=== PATIENT | female | born 1995 | race Caucasian/White ===

== ENCOUNTER 2023-10-02 16:19 | Inpatient (IN) | payer MEDICAID, SELFPAY ==
[2023-10-02] VITALS (10 sets, daily range): BP systolic 110–142; BP diastolic 58–91; PULSE 94–122; RESP 16–20; TEMP 37.3–39.6; O2SAT 93–96; BMI 35.9
--- NOTE | 2023-10-02 16:40 | ED_ITS ---
HPI - Fever General Time Seen by Provider: 16:40 Date Seen: 10/02/23 Chief Complaint: Fever Stated Complaint: fever, body aches Time Seen by Provider: 10/02/23 16:20 Source: patient and RN notes reviewed Mode of arrival: ambulatory Limitations: no limitations History of Present Illness HPI Narrative: This 28yo female is coming in with headache, fever, and body aches that started today. Denies sore throat, cough, urinary symptoms, abdominal pain, nausea/vomiting or diarrhea. She has no known ill contacts, no travel. Symptoms started this am. She has not taken any OTC meds, no tylenol or ibuprofen. Patient's son is in the room with her, not ill. MD elicited complaint: fever Related Data Home Medications ?Medication ?Instructions ?Recorded ?Confirmed No Known Home Medications 10/02/23 10/02/23 Allergies Allergy/AdvReac Type Severity Reaction Status Date / Time No Known Drug Allergies Allergy Verified 10/02/23 16:36 Review of Systems Status of ROS Reports: 6 or more systems reviewed and unremarkable except as noted in History and below PFSH PFS Social History Smoking Status: Unknown if ever smoked Exam Const Vital Signs, click to edit/add: Vital Signs - 24 hr 10/02/23 16:34 10/02/23 17:25 10/02/23 17:50 Temperature 101.2 F H 100.5 F H Pulse Rate Pulse Rate [Pulse Oximeter] 122 H 108 H Respiratory Rate 20 Blood Pressure Blood Pressure [Right Upper Arm] 137/88 Pulse Oximetry 95 94 Oxygen Delivery Method Room Air Room Air 10/02/23 18:02 10/02/23 18:31 10/02/23 20:05 Temperature Pulse Rate 105 H 104 H Pulse Rate [Pulse Oximeter] 94 Respiratory Rate Blood Pressure 135/89 127/91 H Blood Pressure [Right Upper Arm] Pulse Oximetry 93 95 96 Oxygen Delivery Method Room Air 10/02/23 20:15 Temperature Pulse Rate Pulse Rate [Pulse Oximeter] Respiratory Rate 16 Blood Pressure Blood Pressure [Right Upper Arm] Pulse Oximetry Oxygen Delivery Method Patient is lying in bed in room 1. She mostly kept her eyes closed, did open when prompted and pupils equal and round, conjugate gaze, sclera clear. Symmetrical facial function. Oropharynx with normal mucosa, dentition good repair, mucosa is well hydrated, posterior pharynx normal. See no exudates or erythema. Neck is supple, no adenopathy. Lungs are clear, good air entry, wheezing crackles, no tachypnea. CV fast irregular, no murmur, normal S1-S2, no S3-S4. Abdomen is soft, nontender, nondistended, no organomegaly, no masses. Documenting provider has reviewed patient's vital signs: yes Course Course ED Course: Nursing staff have collected viral triple swab which is certainly appropriate. Will also do strep testing. Will give Tylenol 1000mg to help with fever and symptom control. Reevaluation(s) Time of Reevaluation #1: 17:34 Reevaluation #1: Reviewed with patient that her covid, influenza, RSV and strep swabs were neg ative. She will have IV placed, receive IV fluids, obtain labs with UA, get portable chest x-ray for occult pneumonia. She is in agreement. Her son notes that they were outside yesterday and did see ticks, otherwise no known prior exposure. Time of Reevaluation #2: 18:41 Reevaluation #2: Reviewed with patient my concern that source could be urinary. She is not menstruating right now. Reviewed that we can treat with antibiotics. Patient would like imaging done, did discuss with her CT imaging to confirm diagnosis or rather rule out other entities. She would prefer to do this and would like to proceed with CT imaging. Did discuss with her radiation, did review with her that I a believed that we certainly could go ahead and treat with antibiotics and observe clinically. She would like to proceed with CT imaging and thus this was ordered. Time of Reevaluation #3: 20:12 Reevaluation #3: Reviewed patient's CT report. Did review that there is moderate thickening of the ascending and proximal transverse colon which radiologist felt likely is representing mild colitis changes. She is just achy everywhere, feels cold. Headache is somewhat improved. Did review with her that there is some changes in her urine that could be indicative urinary tract infection although this is not showing up on CT imaging. She has not eaten anything today, has been drinking some but maybe not keeping up with intake of fluids. She looks ill, reviewed with her that I would like to consider talking to the hospitalist about observation overnight just to ensure that we have correct diagnosis. She would be agreeable to that. I will subsequently talk to the hospitalist. Consultations Consultation #1: Did review with the hospitalist briefly, Dr. Parmar. He will be down shortly to discuss further. Did discuss with hospitalist. He will decide on antibiotics or not. He agrees with observation and supportive care with fluids overnight. Did initiate maintenance IV fluids for her. Time: 20:14 Vital Signs Vital signs: Initial Vital Signs Temperature 101.2 F H 10/02/23 16:34 Temperature Source Temporal Artery Scan 10/02/23 16:34 Pulse Rate 122 H 10/02/23 16:34 Respiratory Rate 20 10/02/23 16:34 Blood Pressure 137/88 10/02/23 16:34 Blood Pressure Mean 104 10/02/23 16:34 Pulse Oximetry 95 10/02/23 16:34 Oxygen Delivery Method Room Air 10/02/23 16:34 Vital Signs Temperature 101.2 F H 10/02/23 16:34 Pulse Rate 122 H 10/02/23 16:34 Respiratory Rate 20 10/02/23 16:34 Blood Pressure 137/88 10/02/23 16:34 Pulse Oximetry 95 10/02/23 16:34 Oxygen Delivery Method Room Air 10/02/23 16:34 Temperature 100.5 F H 10/02/23 17:50 Pulse Rate 94 10/02/23 20:05 Respiratory Rate 16 10/02/23 20:15 Blood Pressure 127/91 H 10/02/23 18:31 Pulse Oximetry 96 10/02/23 20:05 Oxygen Delivery Method Room Air 10/02/23 20:05 Medications Administered Medications: Discontinued Medications Generic Name Dose Route Start Last Admin Trade Name Freq PRN Reason Stop Dose Admin Acetaminophen 1,000 mg 10/02/23 16:54 10/02/23 17:02 Acetaminophen 500 Mg Tablet PO 10/02/23 16:55 1,000 mg ONCE ONE Administration Sodium Chloride 1,000 mls @ 1,000 mls/hr 10/02/23 17:33 10/02/23 20:06 0.9 % Sodium Chloride 1000 Ml IV 10/02/23 18:32 Infused .Q1H ALLY Infusion MDM - Fever Lab Data Attestation: I reviewed the patient's lab results. Labs: Lab Results 10/02/23 10/02/23 10/02/23 Range/Units 16:30 17:00 17:40 WBC (4.50-11.00) K/uL RBC (4.00-5.20) m/uL Hgb (12.0-16.0) gm/dL Hct (33.0-51.0) % MCV (80-100) fL MCH (26-34) pg MCHC (32-36) gm/dL RDW Coeff of Lalita (11.5-15.5) % Plt Count (140-440) K/uL Neut % (Auto) (42.0-72.0) % Lymph % (Auto) (20-44) % [place] % (Auto) (0.0-11.0) % Eos % (Auto) (0.0-7.0) % Baso % (Auto) (0.0-3.0) % Neut # (Auto) (1.7-7.0) K/uL Lymph # (Auto) (0.90-2.90) K/uL [place] # (Auto) (0.00-0.90) K/UL Eos # (Auto) (0.00-0.50) K/uL Baso # (Auto) (0.00-0.30) K/uL Abs Immat Gran (auto) (0.00-0.30) K/uL Imm/Tot Granulo (auto) % Sodium (135-149) mmol/L Potassium (3.6-5.1) mmol/L Chloride (96-114) mmol/L Carbon Dioxide (20-32) mmol/L Anion Gap (7-15) mEq/L BUN (5-24) mg/dL Creatinine (0.5-1.5) mg/dL Estimated Creat Clear Estimated GFR ml/min Glucose (60-115) mg/dL Lactate (0.5-1.9) mmol/L Calcium (8.4-10.6) mg/dL Total Bilirubin (0.1-1.5) mg/dL AST (12-35) U/L ALT (4-35) U/L Alkaline Phosphatase (40-150) U/L C-Reactive Protein (0.5-1.0) mg/dL Total Protein (6.0-8.3) g/dL Albumin (3.3-5.0) g/dL Procalcitonin (<0.50) ng/mL Urine Color Yellow (Yellow) Urine Appearance Clear (Clear) Urine pH 5.5 (5.0-8.5) Ur Specific [place] >= 1.030 (1.000-1.030) Urine Protein 1+ A (Negative) Urine Glucose (UA) Negative (Negative) Urine Ketones 1+ A (Negative) Urine Blood 2+ A (Negative) Urine Nitrite Negative (Negative) Urine Bilirubin Negative (Negative) Urine Urobilinogen 0.2 (0.2-1.0) Ur Leukocyte Esterase Negative (Negative) Urine RBC 2-5 A (0-2) Urine WBC 0-2 (0-5) Ur Squamous Epith Cells None (None-Few) Urine Bacteria Moderate A (None) Urine Mucus Many A (None) SARS-CoV-2 (PCR) Negative SARS-CoV-2 (Negative) Influenza Type A (PCR) Negative PCR FLU A (Negative) Influenza Type B (PCR) Negative PCR FLU B (Negative) RSV (PCR) Negative PCR RSV (Negative) Group A Strep DNA NOT DETECTED (Not Detectd) 10/02/23 Range/Units 17:50 WBC 13.77 H (4.50-11.00) K/uL RBC 4.31 (4.00-5.20) m/uL Hgb 13.7 (12.0-16.0) gm/dL Hct 39.7 (33.0-51.0) % MCV 92 (80-100) fL MCH 32 (26-34) pg MCHC 35 (32-36) gm/dL RDW Coeff of Lalita 11.8 (11.5-15.5) % Plt Count 292 (140-440) K/uL Neut % (Auto) 89.1 H (42.0-72.0) % Lymph % (Auto) 6.5 L (20-44) % [place] % (Auto) 4.2 (0.0-11.0) % Eos % (Auto) 0.0 (0.0-7.0) % Baso % (Auto) 0.1 (0.0-3.0) % Neut # (Auto) 12.30 H (1.7-7.0) K/uL Lymph # (Auto) 0.90 (0.90-2.90) K/uL [place] # (Auto) 0.60 (0.00-0.90) K/UL Eos # (Auto) 0.00 (0.00-0.50) K/uL Baso # (Auto) 0.00 (0.00-0.30) K/uL Abs Immat Gran (auto) 0.00 (0.00-0.30) K/uL Imm/Tot Granulo (auto) 0.1 % Sodium 135 (135-149) mmol/L Potassium 3.5 L (3.6-5.1) mmol/L Chloride 102 (96-114) mmol/L Carbon Dioxide 24 (20-32) mmol/L Anion Gap 9 (7-15) mEq/L BUN 10 (5-24) mg/dL Creatinine 0.6 (0.5-1.5) mg/dL Estimated Creat Clear 106.28 Estimated GFR 126 ml/min Glucose 117 H (60-115) mg/dL Lactate 1.1 (0.5-1.9) mmol/L Calcium 9.4 (8.4-10.6) mg/dL Total Bilirubin 0.9 (0.1-1.5) mg/dL AST 41 H (12-35) U/L ALT 58 H (4-35) U/L Alkaline Phosphatase 76 (40-150) U/L C-Reactive Protein 6.8 H (0.5-1.0) mg/dL Total Protein 8.4 H (6.0-8.3) g/dL Albumin 4.9 (3.3-5.0) g/dL Procalcitonin 0.08 (<0.50) ng/mL Urine Color (Yellow) Urine Appearance (Clear) Urine pH (5.0-8.5) Ur Specific [place] (1.000-1.030) Urine Protein (Negative) Urine Glucose (UA) (Negative) Urine Ketones (Negative) Urine Blood (Negative) Urine Nitrite (Negative) Urine Bilirubin (Negative) Urine Urobilinogen (0.2-1.0) Ur Leukocyte Esterase (Negative) Urine RBC (0-2) Urine WBC (0-5) Ur Squamous Epith Cells (None-Few) Urine Bacteria (None) Urine Mucus (None) SARS-CoV-2 (PCR) (Negative) Influenza Type A (PCR) (Negative) Influenza Type B (PCR) (Negative) RSV (PCR) (Negative) Group A Strep DNA (Not Detectd) Imaging Data Chest x-ray: Attestation: I have reviewed the pertinent imaging results. My impression: Do not appreciate any infiltrate on my preliminary review. Radiologist's impression: Patient: TONNY GOODMAN MIGUEL Facility:?[facility] Patient ID:?[id number] Site Patient ID:?[id number]. Site :?1995 Study:?XRay-Chest 1 VIEW PORTABLE-10/02/2023 5:52:41 PM Ordering Physician:?Cora Chapa Final Report: INDICATION: Fever TECHNIQUE: Chest radiograph 1 view COMPARISON: None FINDINGS: The sensitivity and specificity of the exam are moderately limited by the patient`s body habitus. Mediastinum: The mediastinum is normal in appearance. The heart silhouette is normal in size and morphology. Lung: Both lungs are unremarkable in appearance with small lung volumes. No sign of pleural effusion seen. No pneumothorax is identified. Bone and Soft tissue: Unremarkable for age. IMPRESSION: 1. No acute cardiopulmonary disease is seen. Dictated by: Darrius Rocha MD @ 10/02/2023 18:05:52 (Electronic Signature) CT Chest/Ab/Pelvis: Attestation: I have reviewed the pertinent imaging results. Radiologist's impression: Patient: TONNY OGODMAN MIGUEL Facility:?[facility] Patient ID:?[id number] Site Patient ID:?[id number]. Site :?1995 Study:?CT-Chest/Abd/Pelvis W/ 93CC ISOVUE 370-10/02/2023 7:10:10 PM Ordering Physician:?Cora Chapa Final Report: Indication: Fever Technique: Volumetric multidetector CT images of the chest, abdomen, and pelvis were obtained after the administration of intravenous contrast. Ninety three cc Isovue three seventy low osmolar intravenous contrast Comparison: None available. FINDINGS: CHEST The thoracic inlet is unremarkable. The thyroid gland is within normal limits. The thoracic aorta is nonaneurysmal. There is no filling defect to suggest pulmonary embolus. There is no mediastinal, hilar, or axillary adenopathy. There is minimal dependent basilar atelectasis and parenchymal scar. There is no pneumothorax or pleural effusion. The thoracic osseus structures are intact without fracture, lytic, or blastic lesion. The thoracic vertebral body heights are grossly maintained in satisfactory alignment without evidence of displaced fracture. ABDOMEN AND PELVIS The liver is markedly enlarged with marked hepatic steatosis. The spleen is normal in attenuation and size. The gallbladder is unremarkable without radiopaque calculus. There is no intrahepatic or common ductal dilatation. The stomach and duodenum are grossly unremarkable. The pancreas is normal in enhancement without significant atrophy. The adrenal glands are unremarkable without evidence of adenoma. The kidneys are preserved and corticomedullary differentiation. There is no hydronephrosis or radiopaque calculus. Moderate thickening of the ascending and proximal transverse colon with minimal fluid appreciated likely representing mild colitis changes. The appendix is unremarkable without significant inflammatory change. The abdominal aorta is nonaneurysmal with no significant atherosclerotic disease. The remaining solid pelvic viscera are otherwise grossly unremarkable. There is no pathologically enlarged epigastric, mesenteric, retroperitoneal, or pelvic sidewall lymph node. There is mild diastasis of the rectus musculature. There is no free air or free fluid. The visualized osseous structures are grossly intact without evidence of displaced fracture, lytic or blastic lesion. The lumbar vertebral body heights are grossly maintained in satisfactory alignment without evidence of displaced fracture. Impression: 1. No acute cardiopulmonary abnormality. 2. Moderate hepatomegaly and hepatic steatosis. 3. Moderate thickening of the ascending and proximal transverse colon likely representing mild colitis changes. Please note that all CT scans at this facility use dose modulation, iterative reconstruction, and/or weight-based dosing when appropriate to reduce radiation dose to as low as reasonably achievable. Dictated by José Lamb MD @ 10/02/2023 8:04:36 PM (Electronic Signature) Discharge Plan Discharge Clinical Impression: Colitis Fever Qualifiers: Fever type: due to other condition Qualified Code(s): R50.81 - Fever presenting with conditions classified elsewhere Patient Disposition: Admitted As Observation
[2023-10-02] MEDS: ACETAMINOPHEN 500 MG TABLET 1000 MG PO (17:02)
[2023-10-02 17:23] LABS: PCR FLU A Negative PCR FLU A (Negative); PCR FLU B Negative PCR FLU B (Negative); PCR RSV Negative PCR RSV (Negative); SARS PCR* Negative SARS-CoV-2 (Negative)
[2023-10-02 17:32] LABS: Strep A DNA Probe* NOT DETECTED (Not Detectd)
--- NOTE | 2023-10-02 17:34 | CRLHL7_ITS ---
For Patients: As a result of the Cures Act, medical imaging exams and procedure reports are released immediately into your electronic medical record. You may view this report before your referring provider. If you have questions, please contact your health care provider. INDICATION: Fever TECHNIQUE: Chest radiograph 1 view COMPARISON: None FINDINGS: The sensitivity and specificity of the exam are moderately limited by the patient`s body habitus. Mediastinum: The mediastinum is normal in appearance. The heart silhouette is normal in size and morphology. Lung: Both lungs are unremarkable in appearance with small lung volumes. No sign of pleural effusion seen. No pneumothorax is identified. Bone and Soft tissue: Unremarkable for age. IMPRESSION: 1. No acute cardiopulmonary disease is seen. Dictated by: Darrius Rocha MD @ 10/02/2023 18:05:52 (Electronically Signed)
[2023-10-02 17:53] LABS: Lactate* 1.1 mmol/L (0.5-1.9)
[2023-10-02 17:54] LABS: Appearance Urine Clear (Clear); Bilirubin Urine Negative (Negative); Blood Urine 2+ (Negative); Color Urine Yellow (Yellow); Glucose Urine Negative (Negative); Ketones Urine 1+ (Negative); Leukocyte Esterase Urine Negative (Negative); Nitrite Urine Negative (Negative); Protein Urine 1+ (Negative); Specific Gravity Urine >= 1.030 (1.000-1.030); Urobilinogen Urine 0.2 (0.2-1.0); pH Urine 5.5 (5.0-8.5)
[2023-10-02 17:56] LABS: Basophils Percent Auto 0.1 % (0.0-3.0); Hematocrit 39.7 % (33.0-51.0); Hemoglobin* 13.7 gm/dL (12.0-16.0); Immature Granulocytes Pct Auto 0.1 %; Lymphocytes Percent Auto 6.5 % (20-44); Mean Corpuscular HGB Conc 35 gm/dL (32-36); Mean Corpuscular Hemoglobin 32 pg (26-34); Mean Corpuscular Volume 92 fL (80-100); Monocytes Percent Auto 4.2 % (0.0-11.0); Neutrophils Percent Auto 89.1 % (42.0-72.0); Platelet Count* 292 K/uL (140-440); RDW Coefficient of Variation % 11.8 % (11.5-15.5); Red Blood Count 4.31 m/uL (4.00-5.20); White Blood Count* 13.77 K/uL (4.50-11.00)
[2023-10-02 17:57] LABS: Slide Review Reflex No
[2023-10-02] MEDS: 0.9 % SODIUM CHLORIDE 1000 ml 1,000 ML IV (17:57)
[2023-10-02 18:06] LABS: Bacteria Urine Moderate; Mucus Urine Many; WBC Urine 0-2 (0-5)
[2023-10-02 18:12] LABS: Albumin* 4.9 g/dL (3.3-5.0); Chloride* 102 mmol/L (96-114); Potassium* 3.5 mmol/L (3.6-5.1); Sodium* 135 mmol/L (135-149)
[2023-10-02 18:14] LABS: Bilirubin Total* 0.9 mg/dL (0.1-1.5); Creatinine* 0.6 mg/dL (0.5-1.5); Est. Creatinine Clearance* 106.28; Estimated Glomerular Filt Rate 126 ml/min
[2023-10-02 18:15] LABS: Alanine Aminotransferase* 58 U/L (4-35); Alkaline Phosphatase* 76 U/L (40-150); Anion Gap 9 mEq/L (7-15); Aspartate Amino Transferase* 41 U/L (12-35); Blood Urea Nitrogen* 10 mg/dL (5-24); Carbon Dioxide* 24 mmol/L (20-32); Glucose* 117 mg/dL (60-115); Total Protein* 8.4 g/dL (6.0-8.3)
[2023-10-02 18:16] LABS: Calcium* 9.4 mg/dL (8.4-10.6)
[2023-10-02 18:18] LABS: C Reactive Protein* 6.8 mg/dL (0.5-1.0)
[2023-10-02 18:31] LABS: Procalcitonin* 0.08 ng/mL (<0.50)
--- NOTE | 2023-10-02 18:41 | CRLHL7_ITS ---
For Patients: As a result of the 21st Century Cures Act, medical imaging exams and procedure reports are released immediately into your electronic medical record. You may view this report before your referring provider. If you have questions, please contact your health care provider. Indication: Fever Technique: Volumetric multidetector CT images of the chest, abdomen, and pelvis were obtained after the administration of intravenous contrast. Ninety three cc Isovue three seventy low osmolar intravenous contrast Comparison: None available. FINDINGS: CHEST The thoracic inlet is unremarkable. The thyroid gland is within normal limits. The thoracic aorta is nonaneurysmal. There is no filling defect to suggest pulmonary embolus. There is no mediastinal, hilar, or axillary adenopathy. There is minimal dependent basilar atelectasis and parenchymal scar. There is no pneumothorax or pleural effusion. The thoracic osseus structures are intact without fracture, lytic, or blastic lesion. The thoracic vertebral body heights are grossly maintained in satisfactory alignment without evidence of displaced fracture. ABDOMEN AND PELVIS The liver is markedly enlarged with marked hepatic steatosis. The spleen is normal in attenuation and size. The gallbladder is unremarkable without radiopaque calculus. There is no intrahepatic or common ductal dilatation. The stomach and duodenum are grossly unremarkable. The pancreas is normal in enhancement without significant atrophy. The adrenal glands are unremarkable without evidence of adenoma. The kidneys are preserved and corticomedullary differentiation. There is no hydronephrosis or radiopaque calculus. Moderate thickening of the ascending and proximal transverse colon with minimal fluid appreciated likely representing mild colitis changes. The appendix is unremarkable without significant inflammatory change. The abdominal aorta is nonaneurysmal with no significant atherosclerotic disease. The remaining solid pelvic viscera are otherwise grossly unremarkable. There is no pathologically enlarged epigastric, mesenteric, retroperitoneal, or pelvic sidewall lymph node. There is mild diastasis of the rectus musculature. There is no free air or free fluid. The visualized osseous structures are grossly intact without evidence of displaced fracture, lytic or blastic lesion. The lumbar vertebral body heights are grossly maintained in satisfactory alignment without evidence of displaced fracture. Impression: 1. No acute cardiopulmonary abnormality. 2. Moderate hepatomegaly and hepatic steatosis. 3. Moderate thickening of the ascending and proximal transverse colon likely representing mild colitis changes. Please note that all CT scans at this facility use dose modulation, iterative reconstruction, and/or weight-based dosing when appropriate to reduce radiation dose to as low as reasonably achievable. Dictated by José Lamb MD @ 10/02/2023 8:04:36 PM (Electronically Signed)
[2023-10-02] MEDS: ONDANSETRON 2 MG/ML inj 4 MG IVP (21:23)
[2023-10-02] MEDS: PIPERACILLIN/TAZOBACTAM 3.375 GM in 0.9 % SODIUM CHLORIDE Mini-bag 100 ML IVPB (21:28)
[2023-10-02] MEDS: 0.9 % SODIUM CH + KCL 20 mEq/L 1,000 ML 100 ML IV (21:57)
[2023-10-02] MEDS: PANTOPRAZOLE SODIUM 40 MG INJ IVP (22:56)
[2023-10-02] MEDS: IBUPROFEN 400 MG TABLET PO (22:56)
--- NOTE | 2023-10-02 23:18 | P.IMHP_ITS ---
Hospitalist- H&P: HPI History of Present Illness Date Seen: 10/02/23 Chief complaint: fever, body aches Narrative: Tri Duarte is a 28 year woman presents with complaint of headache, body aches, feeling feverish starting this morning after she woke up. Denies localizing symptoms. Denies cough, sore throat, urinary symptoms, upper gastrointestinal symptoms, lower gastrointestinal symptoms. No recent illness. No recent travel. 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 Has not used any [id number] medications. While she was being assessed in the emergency department initially she had a temperature 100? F.. In time she developed a temperature of 103? F with rigors and diaphoresis. Also developed nausea and vomiting. Review of Systems Status of ROS: Reports: 6 or more systems reviewed and unremarkable except as noted in History and below Narrative: Generally healthy. Does not have a primary care physician. Does not take any prescription medications. Denies use of tobacco. Rarely ever drinks an alcoholic beverage. Denies use of marijuana or any other street or recreational drugs. Has 2 children. Her aunt is caring for her children at this time. Works full- time as a daycare attendant. [facility] Medical History (Updated 10/02/23 @ 23:38 by Mark Parmar MD) 2 para 2 ?Z78.9 - Other specified health status (ICD-10) Surgical History History of appendectomy ?Z90.49 - Acquired absence of other specified parts of digestive tract (ICD- 10) Social History What is your current living situation?: I presently have a place to live Problems where you live: no known problems Problems where you live details: n/a In the past 12 months, utilities in danger of being shut off: no In past 12 months, lack of transportation kept you from medical appts, meetings, work, or getting things needed for daily living: no In the past 12 mos, have been you worried that your food would run out before you had money to buy more?: never true In the past 12 mos, the food you bought just didn't last and you didn't have money to buy more?: never true Highest level of school completed/degree received: high school graduate Smoking Status: Never smoker Do you use any of these nicotine containing products: None Second hand tobacco smoke exposure: No How often do you have a drink containing alcohol: monthly or less How many standard drinks containing alcohol do you have on a typical day: 1 or 2 How often do you have six or more drinks on one occasion: Never AUDIT-C Alcohol total score: 1 Non-prescribed substance use: denies use Caffeine: Yes (daily coffee and soda) How often does anyone, including family, friends and others, physically hurt you : never How often does anyone, including family, friends and others, insult or talk down to you: never How often does anyone, including family, friends and others, threaten you with harm: never How often does anyone, including family, friends and others, scream or curse at you: never service: No Meds Home Medications and Allergies Home Medications ?Medication ?Instructions ?Recorded ?Confirmed ?Type No Known Home Medications 10/02/23 10/02/23 History Allergies Allergy/AdvReac Type Severity Reaction Status Date / Time No Known Drug Allergies Allergy Verified 10/02/23 16:36 Exam Narrative: Exam Narrative: I examine her in the emergency department. As I am examining her she is having rigors and diaphoresis. Temperature is cl imbing when I see her. Temperatures as high as 103? F. Appears toxic and ill. Vision and hearing are adequate. Alert and oriented x4. Cooperative. Articulate. External auditory canals are clear. Normal conjunctiva. Midline nasal septum. Dry buccal mucosa. Dentition in good repair. Midline trachea. Neck is supple. No head and neck lymphadenopathy. Lungs for the most part are clear although she is not taking deep breaths. No obvious wheezing or rhonchi or rales. No CVA tenderness. Heart tones are tachycardic with regular rhythm, normal S1-S2. No obvious murmur, gallop, rub. Abdomen with active bowel sounds. No rebound or guarding. Minimal discomfort with palpation in the epigastrium. Extremities without edema. Capillary refill less than 3 seconds. No focal motor neurologic deficits. Cranial nerves 3-12 grossly normal. Independent in transfer, station, and gait. Skin is warm, with diaphoresis, intact. No rashes, cyanosis, petechiae. Const: Vital Signs, click to edit/add: Vital Signs - 24 hr 10/02/23 16:34 10/02/23 17:25 10/02/23 17:50 Temperature 101.2 F H 100.5 F H Pulse Rate Pulse Rate [Pulse Oximeter] 122 H 108 H Respiratory Rate 20 Blood Pressure Blood Pressure [Le ft Arm] Blood Pressure [Ri ght Upper Arm] 137/88 Pulse Oximetry 95 94 Oxygen Delivery Me thod Room Air Room Air 10/02/23 18:02 10/02/23 18:31 10/02/23 20:05 Temperature Pulse Rate 105 H 104 H Pulse Rate [Pulse Oximeter] 94 Respiratory Rate Blood Pressure 135/89 127/91 H Blood Pressure [Le ft Arm] Blood Pressure [Ri ght Upper Arm] Pulse Oximetry 93 95 96 Oxygen Delivery Or thod Room Air 10/02/23 20:15 10/02/23 21:20 10/02/23 21:45 Temperature 103.2 F H 100.6 F H Pulse Rate Pulse Rate [Pulse Oximeter] 120 H 120 H Respiratory Rate 16 16 20 Blood Pressure Blood Pressure [Le ft Arm] 132/74 Blood Pressure [Ri ght Upper Arm] 142/86 H Pulse Oximetry 94 93 Oxygen Delivery Or thod Room Air Room Air 10/02/23 21:45 Temperature Pulse Rate Pulse Rate [Pulse Oximeter] Respiratory Rate 16 Blood Pressure Blood Pressure [Le ft Arm] Blood Pressure [Ri ght Upper Arm] Pulse Oximetry 93 Oxygen Delivery Me thod Room Air Hospitalist - H&P: Result Labs Labs: Short CBC 10/02/23 Range/Units 17:50 WBC 13.77 H (4.50-11.00) K/uL Hgb 13.7 (12.0-16.0) gm/dL Hct 39.7 (33.0-51.0) % Plt Count 292 (140-440) K/uL BMP 10/02/23 17:50 Sodium 135 Potassium 3.5 L Chloride 102 Carbon Dioxide 24 BUN 10 Creatinine 0.6 Glucose 117 H Calcium 9.4 Liver Function 10/02/23 Range/Units 17:50 Total Bilirubin 0.9 (0.1-1.5) mg/dL AST 41 H (12-35) U/L ALT 58 H (4-35) U/L Alkaline Phosphatase 76 (40-150) U/L Albumin 4.9 (3.3-5.0) g/dL Urine 10/02/23 Range/Units 17:40 Urine Color Yellow (Yellow) Urine Appearance Clear (Clear) Urine pH 5.5 (5.0-8.5) Ur Specific [place] >= 1.030 (1.000-1.030) Urine Protein 1+ A (Negative) Urine Glucose (UA) Negative (Negative) Imaging CT scan - abdomen: Attestation: I have reviewed the pertinent imaging results. Radiologist's impression: No obvious acute cardiopulmonary abnormality. Moderate hepatomegaly with hepatic steatosis. Moderate thickening of the ascending and proximal transverse colon suggesting mild colitis. Assessment and Plan Assessment and plan (1) Sepsis: Problem comment: - fever, rigors, diaphoresis, tachycardia, leukocytosis, appears to have colitis involving the ascending and proximal transverse colon, possible UTI. - blood cultures obtained. Starting on Zosyn empirically. - monitor Status: Acute (2) Colitis: Problem comment: - CT scan of abdomen and pelvis on 10/02/2023: Moderate thickening of the ascending and proximal transverse colon likely representing mild colitis. - differential diagnosis includes bacterial infection, viral infection, inflammatory bowel disease, ischemic disease. - although she has not had diarrhea will check stool culture and stool for C diff toxin should she develop diarrhea. - given her septic presentation, blood cultures are obtained, started Zosyn empirically. - consider colonoscopy with biopsies if warranted. - IV fluids, antiemetics, analgesics Status: Acute (3) UTI (urinary tract infection): Problem comment: - possible. Await urine culture. Start piperacillin with tazobactam empirically for now. Status: Acute (4) Dehydration: Problem comment: - IV fluid - treat underlying cause Status: Acute Plan 1. Reviewed impression and plans with patient. 2. Answered her questions to her satisfaction. 3. Patient agreeable with above stated plans and recommendations. Total Time Spent Total Time Spent: 60 minutes
[2023-10-02] MEDS: OXYCODONE 5 MG TABLET PO (23:45)
[2023-10-03 03:00] VITALS: BP 97/65; PULSE 82; RESP 18; TEMP 36.6; O2SAT 94
[2023-10-03] MEDS: PIPERACILLIN/TAZOBACTAM 3.375 GM in 0.9 % SODIUM CHLORIDE Mini-bag 100 ML IVPB ×4 (03:25→20:06)
[2023-10-03] MEDS: ACETAMINOPHEN 325 MG TABLET 650 MG PO ×2 (04:20→10:10)
--- NOTE | 2023-10-03 05:55 | PC.NURSE ---
ADMISSION/SHIFT NOTE: Pt A&O, drowsy. Reported a 9/10 ALTMAN initially, PRN Motrin given with no relief, PRN Oxycodone given with pt reporting adequate relief. Denies SOB, CP and N/V. Up SBA to the BR, pt incontinent of stool and urine, pt unfortunately took the hat out of her toilet so ticket writer was unable to retrieve a stool sample, pt reminded to keep the hat in the toilet so we can obtain a sample, pt acknowledged understanding..
[2023-10-03 06:27] LABS: Basophils Percent Auto 0.1 % (0.0-3.0); Hematocrit 38.1 % (33.0-51.0); Hemoglobin* 12.9 gm/dL (12.0-16.0); Immature Granulocytes Pct Auto 0.2 %; Lymphocytes Percent Auto 4.7 % (20-44); Mean Corpuscular HGB Conc 34 gm/dL (32-36); Mean Corpuscular Hemoglobin 32 pg (26-34); Mean Corpuscular Volume 93 fL (80-100); Monocytes Percent Auto 3.3 % (0.0-11.0); Neutrophils Percent Auto 91.7 % (42.0-72.0); Platelet Count* 245 K/uL (140-440); RDW Coefficient of Variation % 11.6 % (11.5-15.5); Red Blood Count 4.08 m/uL (4.00-5.20); White Blood Count* 12.74 K/uL (4.50-11.00)
[2023-10-03 06:29] LABS: HCO3 VBG 27 mmol/L (21-28); PCO2 VBG 46 mmHG (40-50); PO2 VBG < 30.1 mmHG (25-47); pH VBG 7.371 (7.32-7.43)
[2023-10-03 06:41] LABS: Slide Review Reflex No
[2023-10-03 06:56] LABS: Albumin* 4.1 g/dL (3.3-5.0); Chloride* 102 mmol/L (96-114)
[2023-10-03 06:57] LABS: Potassium* 3.9 mmol/L (3.6-5.1); Sodium* 135 mmol/L (135-149)
[2023-10-03 06:59] LABS: Creatinine* 0.6 mg/dL (0.5-1.5); Est. Creatinine Clearance* 106.28; Estimated Glomerular Filt Rate 126 ml/min
[2023-10-03 07:00] LABS: Alanine Aminotransferase* 48 U/L (4-35); Alkaline Phosphatase* 61 U/L (40-150); Anion Gap 7 mEq/L (7-15); Aspartate Amino Transferase* 36 U/L (12-35); Bilirubin Total* 1.1 mg/dL (0.1-1.5); Blood Urea Nitrogen* 7 mg/dL (5-24); Calcium* 8.4 mg/dL (8.4-10.6); Carbon Dioxide* 26 mmol/L (20-32); Glucose* 126 mg/dL (60-115); Lipase* 26 U/L (23-300); Total Protein* 7.3 g/dL (6.0-8.3)
[2023-10-03 07:01] LABS: Magnesium* 1.8 mg/dL (1.5-2.6)
[2023-10-03 07:18] LABS: C Reactive Protein* 19.5 mg/dL (0.5-1.0)
[2023-10-03 07:45] VITALS: BP 113/81; PULSE 92; RESP 18; TEMP 37.1; O2SAT 94
[2023-10-03] MEDS: IBUPROFEN 400 MG TABLET PO ×2 (08:29→18:07)
[2023-10-03] MEDS: 0.9 % SODIUM CH + KCL 20 mEq/L 1,000 ML 100 ML IV (08:29)
--- NOTE | 2023-10-03 09:21 | PM.IMPN1 ---
Progress Note: A&P Assessment and plan (1) Sepsis: Problem details: - fever, rigors, diaphoresis, tachycardia, leukocytosis, appears to have colitis involving the ascending and proximal transverse colon, possible UTI - blood cultures obtained (currently NGTD), empiric Zosyn (10/01) - monitor Status: Acute (2) Colitis: Problem details: - CT scan of abdomen and pelvis on 10/02/2023: Moderate thickening of the ascending and proximal transverse colon likely representing mild colitis - differential diagnosis includes bacterial infection, viral infection, inflammatory bowel disease, ischemic disease - loose stools since admission, C-Diff negative, cultures pending Status: Acute (3) UTI (urinary tract infection): Problem details: - possible. Await urine culture, on Zosyn (10/01) Status: Acute (4) Dehydration: Problem details: - IV fluid - treat underlying cause Status: Acute Plan - per above - continue IVFs, Zosyn, await blood culture results - if no worsening of symptoms and tolerating po intake, possibly home as early as tomorrow Subjective Date Seen: 10/03/23 Interval history: Tri was admitted to the hospital last night for abdominal pain; imaging in the ER revealed colitis and clinical picture concerning for sepsis given temperature of 103.2?, heart rate of 120, elevated WBC of 13. This morning, she is still having discomfort in her abdomen and back, has had an intermittent headache as well. No skin concerns or joint pain, has never had colitis before. Hasn't yet tried clears this morning. No other concerns for hospitalist team. Doesn't have a local PCP; recently moved here from [place]. On Zosyn given clinical fever, tachycardia, elevated WBC on admission. NGTD on blood or urine cultures. C-Diff negative. Exam Narrative: Exam Narrative: GEN: Alert and oriented, laying in bed and nontoxic HEENT: EOMIs bilaterally, no scleral icterus CV: RRR, No concerning murmurs R: LCTA bilaterally without concerning wheezing Ab: Soft, + discomfort with palpation without rebound or guarding Ext: wwp, no concerning edema Skin: No concerning skin lesions or rashes on exposed skin Neuro: No focal deficits, no resting tremor Psych: Appropriate Const: Vital Signs, click to edit/add: Vital Signs - 24 hr 10/02/23 16:34 10/02/23 17:25 10/02/23 17:50 Temperature 101.2 F H 100.5 F H Pulse Rate Pulse Rate [Pulse Oximeter] 122 H 108 H Respiratory Rate 20 Blood Pressure Blood Pressure [Le ft Arm] Blood Pressure [Ri ght Upper Arm] 137/88 Pulse Oximetry 95 94 Oxygen Delivery Me thod Room Air Room Air 10/02/23 18:02 10/02/23 18:31 10/02/23 20:05 Temperature Pulse Rate 105 H 104 H Pulse Rate [Pulse Oximeter] 94 Respiratory Rate Blood Pressure 135/89 127/91 H Blood Pressure [Le ft Arm] Blood Pressure [Ri ght Upper Arm] Pulse Oximetry 93 95 96 Oxygen Delivery Me thod Room Air 10/02/23 20:15 10/02/23 21:20 10/02/23 21:45 Temperature 103.2 F H 100.6 F H Pulse Rate Pulse Rate [Pulse Oximeter] 120 H 120 H Respiratory Rate 16 16 20 Blood Pressure Blood Pressure [Le ft Arm] 132/74 Blood Pressure [Ri ght Upper Arm] 142/86 H Pulse Oximetry 94 93 Oxygen Delivery Me thod Room Air Room Air 10/02/23 21:45 10/02/23 23:00 10/02/23 23:00 Temperature Pulse Rate Pulse Rate [Pulse Oximeter] 110 H Respiratory Rate 16 16 18 Blood Pressure Blood Pressure [Le ft Arm] Blood Pressure [Ri ght Upper Arm] Pulse Oximetry 93 93 Oxygen Delivery Me thod Room Air Room Air 10/02/23 23:00 10/03/23 03:00 Temperature 99.2 F 97.8 F Pulse Rate Pulse Rate [Pulse Oximeter] 110 H 82 Respiratory Rate 18 18 Blood Pressure Blood Pressure [Le ft Arm] 110/58 L 97/65 Blood Pressure [Ri ght Upper Arm] Pulse Oximetry 93 94 Oxygen Delivery Me thod Room Air Room Air Labs Labs: Laboratory Results - last 24 hr 10/02/23 10/02/23 10/02/23 16:30 17:00 17:40 WBC RBC Hgb Hct MCV MCH MCHC RDW Coeff of Lalita Plt Count Neut % (Auto) Lymph % (Auto) [place] % (Auto) Eos % (Auto) Baso % (Auto) Neut # (Auto) Lymph # (Auto) [place] # (Auto) Eos # (Auto) Baso # (Auto) Abs Immat Gran (auto) Imm/Tot Granulo (auto) VBG pH VBG pCO2 VBG pO2 VBG HCO3 Sodium Potassium Chloride Carbon Dioxide Anion Gap BUN Creatinine Estimated Creat Clear Estimated GFR Glucose Lactate Calcium Phosphorus Magnesium Total Bilirubin AST ALT Alkaline Phosphatase C-Reactive Protein Total Protein Albumin Lipase Procalcitonin Urine Color Yellow Urine Appearance Clear Urine pH 5.5 Ur Specific [place] >= 1.030 Urine Protein 1+ A Urine Glucose (UA) Negative Urine Ketones 1+ A Urine Blood 2+ A Urine Nitrite Negative Urine Bilirubin Negative Urine Urobilinogen 0.2 Ur Leukocyte Esterase Negative Urine RBC 2-5 A Urine WBC 0-2 Ur Squamous Epith Cells None Urine Bacteria Moderate A Urine Mucus Many A SARS-CoV-2 (PCR) Negative SARS-CoV-2 Influenza Type A (PCR) Negative PCR FLU A Influenza Type B (PCR) Negative PCR FLU B RSV (PCR) Negative PCR RSV Group A Strep DNA NOT DETECTED 10/02/23 10/03/23 17:50 05:52 WBC 13.77 H 12.74 H RBC 4.31 4.08 Hgb 13.7 12.9 Hct 39.7 38.1 MCV 92 93 MCH 32 32 MCHC 35 34 RDW Coeff of Lalita 11.8 11.6 Plt Count 292 245 Neut % (Auto) 89.1 H 91.7 H Lymph % (Auto) 6.5 L 4.7 L [place] % (Auto) 4.2 3.3 Eos % (Auto) 0.0 0.0 Baso % (Auto) 0.1 0.1 Neut # (Auto) 12.30 H 11.70 H Lymph # (Auto) 0.90 0.60 L [place] # (Auto) 0.60 0.40 Eos # (Auto) 0.00 0.00 Baso # (Auto) 0.00 0.00 Abs Immat Gran (auto) 0.00 0.00 Imm/Tot Granulo (auto) 0.1 0.2 VBG pH 7.371 VBG pCO2 46 VBG pO2 < 30.1 VBG HCO3 27 Sodium 135 135 Potassium 3.5 L 3.9 Chloride 102 102 Carbon Dioxide 24 26 Anion Gap 9 7 BUN 10 7 Creatinine 0.6 0.6 Estimated Creat Clear 106.28 106.28 Estimated GFR 126 126 Glucose 117 H 126 H Lactate 1.1 Calcium 9.4 8.4 Phosphorus 3.0 Magnesium 1.8 Total Bilirubin 0.9 1.1 AST 41 H 36 H ALT 58 H 48 H Alkaline Phosphatase 76 61 C-Reactive Protein 6.8 H 19.5 H Total Protein 8.4 H 7.3 Albumin 4.9 4.1 Lipase 26 Procalcitonin 0.08 Urine Color Urine Appearance Urine pH Ur Specific [place] Urine Protein Urine Glucose (UA) Urine Ketones Urine Blood Urine Nitrite Urine Bilirubin Urine Urobilinogen Ur Leukocyte Esterase Urine RBC Urine WBC Ur Squamous Epith Cells Urine Bacteria Urine Mucus SARS-CoV-2 (PCR) Influenza Type A (PCR) Influenza Type B (PCR) RSV (PCR) Group A Strep DNA
[2023-10-03 11:23] LABS: C.Difficile Negative (Negative); CDIFFEPI 027 PRESUMPTIVE NEGATIVE (Negative)
[2023-10-03 12:00] VITALS: BP 105/83; PULSE 87; RESP 18; TEMP 36.2; O2SAT 95
[2023-10-03 15:48] VITALS: BP 132/77; PULSE 81; RESP 18; TEMP 37; O2SAT 96
[2023-10-03 16:07] VITALS: PULSE 81; RESP 18; O2SAT 96
[2023-10-03 20:34] VITALS: BP 120/84; PULSE 79; RESP 18; TEMP 37.2; O2SAT 96
--- NOTE | 2023-10-03 22:49 | P.DS_ITS ---
DS: Providers Provider Date Seen: 10/03/23 Date of admission: 10/03/23 09:11 Primary care physician: Not a Local Provider Admitting Clinician: Mark Parmar MD Attending Physician on discharge: Mark Parmar MD Date of Discharge: 10/03/23 DS: Diagnosis Discharge Diagnosis (1) Colitis: Status: Acute Problem details: - CT scan of abdomen and pelvis on 10/02/2023: Moderate thickening of the ascending and proximal transverse colon likely representing mild colitis - differential diagnosis includes bacterial infection, viral infection, inflam matory bowel disease, ischemic disease - loose stools since admission, C-Diff negative, cultures pending (2) Sepsis: Status: Acute Problem details: - fever, rigors, diaphoresis, tachycardia, leukocytosis, appears to have colitis involving the ascending and proximal transverse colon, possible UTI - blood cultures obtained (currently NGTD), empiric Zosyn (10/01) - monitor (3) UTI (urinary tract infection): Status: Acute Problem details: - possible. Await urine culture, on Zosyn (10/01) (4) Dehydration: Status: Acute Problem details: - IV fluid - treat underlying cause DS: Summary Hospital Course Hospital Course: Admission history of present illness: 28 year woman presents with complaint of headache, body aches, feeling feverish starting this morning after she woke up. Denies localizing symptoms. Denies cough, sore throat, urinary symptoms, upper gastrointestinal symptoms, lower gastrointestinal symptoms. No recent illness. No recent travel. 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 Has not used any over-the- counter medications. While she was being assessed in the emergency department initially she had a temperature 100? F.. In time she developed a temperature of 103? F with rigors and diaphoresis. Also developed nausea and vomiting. Interventions and response to interventions as specified above. Late in the evening on 10/03/23 patient declared she needed to leave the hospital so she could attend to her young child. Despite our efforts, including having a responsible adult bring her child and attend her child here so we could adequately complete our assessment and establish a safe discharge plan, the patient left against medical advice. She did allow us to administer her 2100 dose of Zosyn before leaving. Advised her to follow-up with her primary care physician, return if worsening, and try to advance her diet as tolerated. Status at Discharge Overall status at discharge: patient is progressing back to baseline Time Spent with Patient Time attestation: Total time spent providing and/or coordinating discharge services: Time spent: Less than 30 minutes Exam Narrative: Exam Narrative: GEN: Alert and oriented, laying in bed and nontoxic HEENT: EOMIs bilaterally, no scleral icterus CV: RRR, No concerning murmurs R: LCTA bilaterally without concerning wheezing Ab: Soft, + discomfort with palpation without rebound or guarding Ext: wwp, no concerning edema Skin: No concerning skin lesions or rashes on exposed skin Neuro: No focal deficits, no resting tremor Psych: Appropriate Const: Vital Signs, click to edit/add: Vital Signs - 24 hr 10/02/23 23:00 10/02/23 23:00 10/02/23 23:00 Temperature 99.2 F Pulse Rate [Pulse Oximeter] 110 H 110 H Respiratory Rate 16 18 18 Blood Pressure [Le ft Arm] 110/58 L Pulse Oximetry 93 [facility] 10/03/23 03:00 10/03/23 07:45 10/03/23 07:45 Temperature 97.8 F Pulse Rate [Pulse Oximeter] 82 92 Respiratory Rate 18 18 18 Blood Pressure [Le ft Arm] 97/65 Pulse Oximetry 94 94 [facility] Room Air 10/03/23 07:45 10/03/23 12:00 10/03/23 15:48 Temperature 98.7 F 97.1 F L 98.6 F Pulse Rate [Pulse Oximeter] 92 87 81 Respiratory Rate 18 18 18 Blood Pressure [Le ft Arm] 113/81 105/83 132/77 Pulse Oximetry 94 95 96 [facility] Room Air Room Air 10/03/23 16:07 10/03/23 16:07 10/03/23 20:34 Temperature 98.9 F Pulse Rate [Pulse Oximeter] 81 79 Respiratory Rate 18 18 18 Blood Pressure [Le ft Arm] 120/84 Pulse Oximetry 96 96 [facility] DS: Data Data Completed and Pending Labs on day of discharge: Labs from last 24 hours 10/03/23 10/03/23 10:21 05:52 WBC 12.74 H RBC 4.08 Hgb 12.9 Hct 38.1 MCV 93 MCH 32 MCHC 34 RDW Coeff of Lalita 11.6 Plt Count 245 Neut % (Auto) 91.7 H Lymph % (Auto) 4.7 L [place] % (Auto) 3.3 Eos % (Auto) 0.0 Baso % (Auto) 0.1 Neut # (Auto) 11.70 H Lymph # (Auto) 0.60 L [place] # (Auto) 0.40 Eos # (Auto) 0.00 Baso # (Auto) 0.00 Abs Immat Gran (auto) 0.00 Imm/Tot Granulo (auto) 0.2 VBG pH 7.371 VBG pCO2 46 VBG pO2 < 30.1 VBG HCO3 27 Sodium 135 Potassium 3.9 Chloride 102 Carbon Dioxide 26 Anion Gap 7 BUN 7 Creatinine 0.6 Estimated Creat Clear 106.28 Estimated GFR 126 Glucose 126 H Calcium 8.4 Phosphorus 3.0 Magnesium 1.8 Total Bilirubin 1.1 AST 36 H ALT 48 H Alkaline Phosphatase 61 C-Reactive Protein 19.5 H Total Protein 7.3 Albumin 4.1 Lipase 26 Stl C. diff Tox B Gene Negative Stl C. diff [id number] PRESUMPTIVE NEGATIVE Preliminary micro results at discharge 10/02/23 21:22 Blood Culture - Preliminary Blood NO GROWTH AFTER 24 HOURS 10/02/23 17:40 Urine Culture - Preliminary Urine,Clean Catch < 10,000 COL/ML MIXED GRAM POSITIVE TU ISOLATED NO FURTHER WORKUP Imaging CT Chest/Ab/Pelvis: Attestation: I have reviewed the pertinent imaging results. Radiologist's impression: 1. No acute cardiopulmonary abnormality. 2. Moderate hepatomegaly and hepatic steatosis. 3. Moderate thickening of the ascending and proximal transverse colon likely representing mild colitis changes. Discharge Plan Discharge Disposition: Left Against Medical Advice Date of Admission: 10/03/23 09:11 Attending Provider on Discharge: Mark Parmar Primary Care Provider: Provider,Not a Local Condition: Improved Discharge Medications: No Action No Known Home Medications Discharge Orders: Discharge Order (Routine); Ordered 10/03/23 Ordered By: Mark aPrmar AMPoli Form Signed: Yes
--- NOTE | 2023-10-04 00:26 | PC.NURSE ---
Pt alert and oriented x3. Afebrile. Pt denies pain, chest pain, SOB, and N/V. Pt requested to leave AMA for concern for her child. RN offered option for pt to have family member come to stay with her and the child, pt politely refused wanting to leave AMA. RN updated MD Marti and gave verbal education given to pt on UTI, colitis and pending blood cultures with possibility of sepsis and concern for stopping antibiotics early, pt verbalized understanding but still wanted to leave AMA. Updated MD [place], pt signed AMA form, IV removed by provider catheter intact. Pt left unit at 2103.
== END 2023-10-03 21:03 | disposition left against medical advice (07) | DRG 720 ==
LOC: ED 20:39 → MEDSURG 21:34
PROVIDERS: Admitting Provider Internal Medicine; Emergency Provider Family Medicine; Visit Provider Internal Medicine
DX: A41.9 Sepsis, unspecified organism (principal); N39.0 Urinary tract infection, site not specified; K52.9 Noninfective gastroenteritis and colitis, unspecified; E86.0 Dehydration; Z53.29 Procedure and treatment not carried out because of patient's decision for other reasons
CPT/HCPCS: 36415; 71045; 71260; 74177; 80053; 81001; 82803; 83605; 83690; 83735; 84100; 84145; 85025; 86140; 87040; 87045; 87046; 87086; 87427; 87493; 87631; 87651; 99285; A9270; G0378; J2405; J2470; J2543; J7030; Q9967